=== PATIENT | female | born 1995 | race Caucasian/White ===

== ENCOUNTER 2025-09-11 14:52 | Emergency (ER) | payer MEDICAID, SELFPAY ==
[2025-09-11 14:53] VITALS: BP 122/81; PULSE 71; RESP 16; TEMP 36.5; O2SAT 99; BMI 25.7
== END 2025-09-11 16:00 | disposition left against medical advice (07) ==
LOC: ED 16:03
DX: Z53.21 Procedure and treatment not carried out due to patient leaving prior to being seen by health care provider (principal)